=== PATIENT | female | born 1985 | race Caucasian/White ===

== ENCOUNTER 2016-10-25 09:24 | Emergency (ER) | payer OTHER ==
[~2016-10-25] VITALS: Ht 167.6 cm; Wt 99.5 kg
[2016-10-25] MEDS ORDERED: LEVOTHYROXINE50 MCG PO (09:58)
[2016-10-25] MEDS ORDERED: QSYMIA 15 MG-91 EACH PO (09:58)
[2016-10-25 10:42] LABS: HEMATOCRIT 42.4 % (36.0-46.0); MCH 28.3 PG (29.0-34.0); MCHC 33.5 G/DL (30.0-36.0); MCV 84.6 FL (83-99); MEAN PLAT.VOLUME 10.1 uM^3 (9.5-12.4); PLATELET COUNT 235 K/uL (156-360); RBC DIS.WIDTH-CV 12.2 % (11.8-14.6); RBC DIS.WIDTH-SD 36.5 % (39-53); RED BLOOD COUNT 5.01 M/uL (3.80-5.20); WHITE BLOOD COUNT 11.7 K/uL (4.1-10.2)
[2016-10-25 10:53] LABS: D-DIMER ELISA < 0.15 mg/L FEU (< 0.57)
[2016-10-25 10:56] LABS: CHLORIDE 108 mEq/L (99-109); POTASSIUM 3.8 mEq/L (3.7-5.4); SODIUM 138 mEq/L (136-147)
[2016-10-25 10:58] LABS: GLUCOSE 99 mg/dL (70-99)
[2016-10-25 10:59] LABS: ANION GAP 8 MEQ/L (2-14)
[2016-10-25 11:00] LABS: TOTAL BILIRUBIN 0.5 mg/dL (0.0-1.0)
[2016-10-25 11:02] LABS: ALKALINE PHOSPHATASE 70 IU/L (3-129); GFR ESTIMATE (CALCULATED) > 59 mL/min/
[2016-10-25 11:03] LABS: UREA NITROGEN (BUN) 11 mg/dL (9-23)
[2016-10-25 11:04] LABS: DIRECT BILIRUBIN 0.2 mg/dL (0.0-0.3)
[2016-10-25 11:05] LABS: LIPASE 14 U/L (1.0-51.0); TROP-I INTERPRETATION NEGATIVE; TROPONIN-I < 0.01 ng/mL (0.0-0.30)
[2016-10-25 11:12] LABS: QUANTITATIVE HCG < 4.0 MIU/ML
[2016-10-25 13:57] LABS: TROP-I INTERPRETATION NEGATIVE; TROPONIN-I < 0.01 ng/mL (0.0-0.30)
[2016-10-25 14:05] VITALS: BP 124/76
== END 2016-10-25 14:11 | disposition home or self-care (01) ==
LOC: EME 09:24
PROVIDERS: Physician Assistant Medical
DX: R04.2 Hemoptysis (principal); R07.81 Pleurodynia; R10.12 Left upper quadrant pain; R00.0 Tachycardia, unspecified; E03.9 Hypothyroidism, unspecified; Z87.891 Personal history of nicotine dependence
CPT/HCPCS: 71020; 74000; 80048; 80076; 83690; 84484; 84702; 85027; 85379; 93005; 99281; 99284